=== PATIENT | male | born 1940 | race Caucasian/White ===

== ENCOUNTER 2021-11-25 11:56 | Inpatient (IN) ==
[2021-11-25] MEDS ORDERED: Acetaminophen 325 MG TABLET PO PRN (20:56)
[2021-11-25] MEDS ORDERED: Ondansetron ODT 4 MG TAB.RAPDIS SL PRN (21:00)
[2021-11-25] MEDS: Aspirin Enteric Coated 81 MG Tablet PO SCH (21:26)
[2021-11-26 07:15] LABS: Basophils % 0.1 %; Eosinophils # 0.2 K/mcL (0.0-0.6); Eosinophils % 3.4 %; Hematocrit 30.5 % (37.5-50.1); Hemoglobin 9.6 g/dL (12.9-16.9); Immature Granulocytes % 0.3 % (0-4); Lymphocytes # 1.2 K/mcL (0.6-4.6); Lymphocytes % 17.8 %; Mean Corpuscular HGB Conc 31.5 g/dL (31.6-35.5); Mean Corpuscular Hemoglobin 30.8 pg (28.0-33.3); Mean Corpuscular Volume 97.8 fL (83.0-100.0); Mean Platelet Volume 10.6 fL (9.4-12.4); Monocytes # 0.9 K/mcL (0.0-1.3); Monocytes % 13.1 %; Neutrophils # 4.4 K/mcL (1.6-8.9); Platelet Count 196 K/mcL (140-400); Red Blood Count 3.12 M/mcL (4.19-5.50); Red Cell Distribution Width 13.2 % (11.5-14.5); Segmented Neutrophils % 65.3 %; White Blood Count 6.8 K/mcL (4.3-11.1)
[2021-11-26 07:37] LABS: Calcium 8.5 mg/dL (8.6-10.3); Potassium 4.7 mEq/L (3.5-5.1)
[2021-11-26] MEDS: Aspirin Enteric Coated 81 MG Tablet PO SCH ×2 (08:20→20:04)
[2021-11-26] MEDS: Cholecalciferol (D-3) 1,000 UNIT (25MCG) TABLET PO SCH (08:20)
[2021-11-26] MEDS: [UNRECOGNIZED DRUG - OTHER] PO SCH (08:21)
[2021-11-26] MEDS: SELENIUM 200 MCG PO SCH (08:21)
[2021-11-26] MEDS: SAW PALMETTO 450 MG PO SCH (08:21)
[2021-11-26] MEDS: allopurinoL 100 MG TABLET PO SCH (08:21)
[2021-11-26] MEDS ORDERED: amLODIPine 5 MG TABLET PO SCH (09:00)
[2021-11-27] MEDS: SAW PALMETTO 450 MG PO SCH (07:35)
[2021-11-27] MEDS: Aspirin Enteric Coated 81 MG Tablet PO SCH ×2 (07:35→21:09)
[2021-11-27] MEDS: Cholecalciferol (D-3) 1,000 UNIT (25MCG) TABLET PO SCH (07:35)
[2021-11-27] MEDS: allopurinoL 100 MG TABLET PO SCH (07:35)
[2021-11-27] MEDS: [UNRECOGNIZED DRUG - OTHER] PO SCH (07:35)
[2021-11-27] MEDS: SELENIUM 200 MCG PO SCH (07:35)
[2021-11-27] MEDS: amLODIPine 5 MG TABLET PO SCH (09:37)
[2021-11-28] MEDS: SELENIUM 200 MCG PO SCH (07:35)
[2021-11-28] MEDS: [UNRECOGNIZED DRUG - OTHER] PO SCH (07:35)
[2021-11-28] MEDS: SAW PALMETTO 450 MG PO SCH (07:35)
[2021-11-28] MEDS: Aspirin Enteric Coated 81 MG Tablet PO SCH ×2 (07:48→20:40)
[2021-11-28] MEDS: amLODIPine 5 MG TABLET PO SCH (07:48)
[2021-11-28] MEDS: Cholecalciferol (D-3) 1,000 UNIT (25MCG) TABLET PO SCH (07:48)
[2021-11-28] MEDS: allopurinoL 100 MG TABLET PO SCH (07:48)
[2021-11-28] MEDS ORDERED: hydrALAZINE 25 MG TABLET PO PRN (15:48)
[2021-11-29 07:05] LABS: Basophils % 0.3 %; Eosinophils # 0.2 K/mcL (0.0-0.6); Eosinophils % 3.2 %; Hematocrit 29.8 % (37.5-50.1); Hemoglobin 9.2 g/dL (12.9-16.9); Immature Granulocytes % 0.3 % (0-4); Lymphocytes # 1.2 K/mcL (0.6-4.6); Lymphocytes % 19.1 %; Mean Corpuscular HGB Conc 30.9 g/dL (31.6-35.5); Mean Corpuscular Hemoglobin 30.6 pg (28.0-33.3); Mean Platelet Volume 9.8 fL (9.4-12.4); Monocytes # 0.8 K/mcL (0.0-1.3); Monocytes % 13.3 %; Platelet Count 219 K/mcL (140-400); Red Blood Count 3.01 M/mcL (4.19-5.50); Red Cell Distribution Width 13.2 % (11.5-14.5); Segmented Neutrophils % 63.8 %; White Blood Count 6.2 K/mcL (4.3-11.1)
[2021-11-29 07:28] LABS: Calcium 8.3 mg/dL (8.6-10.3); Potassium 4.8 mEq/L (3.5-5.1)
[2021-11-29] MEDS: Aspirin Enteric Coated 81 MG Tablet PO SCH ×2 (09:16→20:23)
[2021-11-29] MEDS: amLODIPine 5 MG TABLET PO SCH (09:16)
[2021-11-29] MEDS: allopurinoL 100 MG TABLET PO SCH (09:16)
[2021-11-29] MEDS: SAW PALMETTO 450 MG PO SCH (09:17)
[2021-11-29] MEDS: Cholecalciferol (D-3) 1,000 UNIT (25MCG) TABLET PO SCH (09:17)
[2021-11-29] MEDS: [UNRECOGNIZED DRUG - OTHER] PO SCH (09:17)
[2021-11-29] MEDS: SELENIUM 200 MCG PO SCH (09:17)
[2021-11-29] MEDS: *HR* OxyCODONE/APAP 5/325 TABLET PO PRN (22:05)
[2021-11-30] MEDS: amLODIPine 5 MG TABLET PO SCH (09:36)
[2021-11-30] MEDS: Cholecalciferol (D-3) 1,000 UNIT (25MCG) TABLET PO SCH (09:36)
[2021-11-30] MEDS: Aspirin Enteric Coated 81 MG Tablet PO SCH ×2 (09:36→22:30)
[2021-11-30] MEDS: SELENIUM 200 MCG PO SCH (09:37)
[2021-11-30] MEDS: SAW PALMETTO 450 MG PO SCH (09:37)
[2021-11-30] MEDS: allopurinoL 100 MG TABLET PO SCH (09:37)
[2021-11-30] MEDS: [UNRECOGNIZED DRUG - OTHER] PO SCH (09:42)
[2021-11-30] MEDS: *HR* OxyCODONE/APAP 5/325 TABLET PO PRN (22:30)
[2021-12-01 07:04] VITALS: O2SAT 96
[2021-12-01] MEDS: amLODIPine 5 MG TABLET PO SCH (08:53)
[2021-12-01] MEDS: Cholecalciferol (D-3) 1,000 UNIT (25MCG) TABLET PO SCH (09:43)
[2021-12-01] MEDS: Aspirin Enteric Coated 81 MG Tablet PO SCH ×2 (09:44→20:27)
[2021-12-01] MEDS: allopurinoL 100 MG TABLET PO SCH (09:44)
[2021-12-01] MEDS: SELENIUM 200 MCG PO SCH (09:45)
[2021-12-01] MEDS: SAW PALMETTO 450 MG PO SCH (09:45)
[2021-12-01] MEDS: [UNRECOGNIZED DRUG - OTHER] PO SCH (09:45)
[2021-12-01] MEDS ORDERED: Melatonin 3 MG TABLET PO PRN (17:30)
[2021-12-02 07:10] VITALS: BP 128/50; PULSE 76; RESP 16; TEMP 97.6
[2021-12-02] MEDS: Cholecalciferol (D-3) 1,000 UNIT (25MCG) TABLET PO SCH (08:33)
[2021-12-02] MEDS: Aspirin Enteric Coated 81 MG Tablet PO SCH (08:34)
[2021-12-02] MEDS: amLODIPine 5 MG TABLET PO SCH (08:34)
[2021-12-02] MEDS: [UNRECOGNIZED DRUG - OTHER] PO SCH (08:34)
[2021-12-02] MEDS: SAW PALMETTO 450 MG PO SCH (08:35)
[2021-12-02] MEDS: allopurinoL 100 MG TABLET PO SCH (08:35)
[2021-12-02] MEDS: SELENIUM 200 MCG PO SCH (08:35)
== END 2021-12-02 15:30 | disposition home or self-care (01) | DRG 554 ==
LOC: INPPIK 20:26
PROVIDERS: ADMIT Family Medicine; ATTEND Family Medicine